=== PATIENT | female | born 1975 | race Caucasian/White ===

== ENCOUNTER 2017-08-14 14:48 | Emergency (ER) | payer OTHER ==
[2017-08-14 15:05] VITALS: BP 118/73
--- NOTE | 2017-08-23 11:55 | ED ---
Lower Extremity - HPI Summary HPI Summary: Patient presents to the ED with CC of numbness R leg from knee down to the foot x 3 weeks. Denies injury. Patient is a smoker, denies travel. Denies pain. Numbness is intermittent. No deformity noted. Ambulating well. Denies previous history of PAD, PVD, DVT or cardiac issues. Denies OCP use. She is otherwise healthy. She states she called her PCP who sent her here for evaluation but notes "i am not nervous and shouldn't be here." Eating and drinking OK. Denies other complaints. She denies color or temperature changes to the area. Pulses + bilaterally. - History of Current Complaint Chief Complaint: EDExtremityLower Stated Complaint: NUMBNESS IN LOWER RT LEG Hx Obtained From: Patient Hx Last Menstrual Period: 05/11 Mechanism Of Injury: Unknown Onset of Pain: Immediate - no pain. Onset/Duration: Weeks Severity Initially: Mild Severity Currently: Mild Pain Intensity: 0 Pain Scale Used: 0-10 Numeric Timing: Intermittent Location: Is Discrete @ - right BTK Associated Signs And Symptoms: Positive: Negative Aggravating Factor(s): Standing, Ambulation Alleviating Factor(s): Rest Able to Bear Weight: Yes - Risk Factors Gout Risk Factors: Age Over 40 DVT Risk Factors: Smoking Septic Arthritis Risk Factor: Negative - Allergies/Home Medications Allergies/Adverse Reactions: Allergies Allergy/AdvReac Type Severity Reaction Status Date / Time No Known Allergies Allergy Verified 09/06/16 15:47 PMH/Surg Hx/FS Hx/Imm Hx Previously Healthy: Yes Endocrine/Hematology History: Denies: Hx Diabetes, Hx Thyroid Disease Cardiovascular History: Denies: Hx Hypertension, Hx Pacemaker/ICD Respiratory History: Denies: Hx Asthma, Hx Chronic Obstructive Pulmonary Disease (COPD) GI History: Denies: Hx Ulcer History: Denies: Hx Renal Disease Sensory History: Denies: Hx Hearing Aid Psychiatric History: Denies: Hx Panic Disorder - Surgical History Surgery Procedure, Year, and Place: 4 C-SECTIONS, FIBROID REMOVAL - Immunization History Date of Tetanus Vaccine: unknown Hx Pertussis Vaccination: No Immunizations Up to Date: Unable to Obtain/Confirm Infectious Disease History: No Infectious Disease History: Reports: Hx Human Immunodeficiency Virus (HIV) Denies: Hx Hepatitis, Hx of Known/Suspected MRSA, Hx Shingles, Hx Tuberculosis, Hx Known/Suspected VRE, History Other Infectious Disease, Traveled Outside the [place] in Last 30 Days - Family History Known Family History: Positive: Cardiac Disease, Respiratory Disease - mother of lung cancer, Father had liver problems - Social History Occupation: Employed Full-time Lives: With Family Alcohol Use: None Hx Substance Use: No Substance Use Type: Reports: None Hx Tobacco Use: Yes Smoking Status (MU): Heavy Every Day Tobacco Smoker Have You Smoked in the Last Year: No Review of Systems Constitutional: Negative Negative: Fever, Chills, Fatigue Eyes: Negative Cardiovascular: Negative Respiratory: Negative Genitourinary: Negative Positive: no symptoms reported, see HPI Musculoskeletal: Negative Positive: Paresthesia - right leg BTK to the foot Psychological: Normal All Other Systems Reviewed And Are Negative: Yes Physical Exam Triage Information Reviewed: Yes Vital Signs On Initial Exam: Initial Vitals Temp Pulse Resp BP Pulse Ox 98.2 F 84 18 118/73 100 08/14/17 15:02 08/14/17 15:02 08/14/17 15:02 08/14/17 15:02 08/14/17 15:02 Vital Signs Reviewed: Yes Appearance: Positive: Well-Appearing, No Pain Distress, Well-Nourished Skin: Positive: Warm, Skin Color Reflects Adequate Perfusion Head/Face: Positive: Normal Head/Face Inspection Eyes: Positive: EOMI, DIOR, Conjunctiva Clear Neck: Positive: Supple, Nontender, No Lymphadenopathy Respiratory/Lung Sounds: Positive: Clear to Auscultation, Breath Sounds Present Cardiovascular: Positive: Normal, RRR, Pulses are Symmetrical in both Upper and Lower Extremities Musculoskeletal: Positive: Normal, Strength/ROM Intact, Other - denies pain on palpation; pinprick to bilateral lower extremities reveals paresthesias with decreased sensation to the right lower extremity without deformity or vascular compromise. Pulses + 2 bilaterally. Good cap refill. Numbness occurring over the dorsum and throughout the calf. No warmth or erythema. Neurological: Positive: Speech Normal Psychiatric: Positive: Normal AVPU Assessment: Alert Diagnostics - Vital Signs Vital Signs Temp Pulse Resp BP Pulse Ox 08/14/17 15:02 98.2 F 84 18 118/73 100 - Laboratory Lab Statement: Any lab studies that have been ordered have been reviewed, and results considered in the medical decision making process. Lower Extremity Course/Dx - Course Course Of Treatment: No warmth or erythema, palpable mass or deformity noted to the right lower extremity. Patient is encouraged to follow up with PCP. Smoker , but denies travel. No pain in the lower extremity. Patient requesting discharge. - Diagnoses Provider Diagnoses: Paresthesia Discharge - Discharge Plan Condition: Stable Disposition: HOME Patient Education Materials: Paresthesia (ED) Referrals: Joel Foley MD [Primary Care Provider] - Additional Instructions: As discussed, please see your PCP I do not feel you need blood work or other imaging as you have been otherwise feeling well Diabetes and elevated sugars can affect numbness/tingling. If you develop cramps or pain in the calf - return to the ED Stretch the leg, apply warmth and ice intermittently to the leg Use ibuprofen 600mg three times daily If this continues, you need to see your PCP for further management
== END 2017-08-14 17:48 | disposition home or self-care (01) ==
LOC: ED 14:48
DX: R20.2 Paresthesia of skin (principal)
CPT/HCPCS: 99282

== ENCOUNTER 2019-05-23 11:06 | Emergency (ER) | payer OTHER ==
[2019-05-23 11:22] VITALS: BP 109/60
--- NOTE | 2019-05-23 11:22 | UC ---
Lower Extremity/Ankle HPI - HPI Summary HPI Summary: 44-year-old woman comes in with a chief complaint of right foot and ankle pain. 2 days ago the patient accidentally tripped and rolled her right ankle. She had pain right away she has pain with weightbearing. Pain is decreased when she elevates it. She has ecchymosis in the area the pain is primarily in the lateral aspect of the ankle and midfoot. - History of Current Complaint Stated Complaint: RIGHT FOOT COMPLAINT Time Seen by Provider: 05/23/19 11:14 Hx Last Menstrual Period: 05/11 - Allergies/Home Medications Allergies/Adverse Reactions: Allergies Allergy/AdvReac Type Severity Reaction Status Date / Time No Known Allergies Allergy Verified 05/23/19 11:23 Home Medications: Home Medications Dolutegravir Sodium [Tivicay] 50 mg PO DAILY WITH MEAL 05/23/19 [History Confirmed 05/23/19] Emtricitabine/Tenofov Alafenam [Descovy 200-25 mg] 1 tab PO DAILY WITH MEAL 02/03 [History Confirmed 05/23/19] Lisinopril 10 mg PO DAILY WITH MEAL 05/23/19 [History Confirmed 05/23/19] PMH/Surg Hx/FS Hx/Imm Hx Previously Healthy: Yes Other History Of: HIV - Surgical History Surgical History: Yes Surgery Procedure, Year, and Place: 4 C-SECTIONS, FIBROID REMOVAL. TUBAL LIGATION 2002 STRONG - Family History Known Family History: Positive: Cardiac Disease, Respiratory Disease - mother of lung cancer, Father had liver problems - Social History Alcohol Use: None Substance Use Type: None Smoking Status (MU): Never Smoked Tobacco Have You Smoked in the Last Year: No Review of Systems All Other Systems Reviewed And Are Negative: Yes Constitutional: Positive: Negative Skin: Positive: Other - SEE HPI Eyes: Positive: Negative ENT: Positive: Negative Respiratory: Positive: Negative Cardiovascular: Positive: Negative Gastrointestinal: Positive: Negative Motor: Positive: Negative Neurovascular: Positive: Negative Musculoskeletal: Positive: Other: - SEE HPI Neurological: Positive: Negative Psychological: Positive: Negative Is Patient Immunocompromised?: No Physical Exam Triage Information Reviewed: Yes Appearance: Well-Appearing, No Pain Distress, Well-Nourished Vital Signs Reviewed: Yes Eye Exam: Normal Eyes: Positive: Conjunctiva Clear Neck: Positive: Supple Respiratory: Positive: No respiratory distress Musculoskeletal: Positive: Other: - There is swelling in the distal right lateral ankle and the right lateral mid foot. Full range of motion full- strength normal capillary refill. No sensation deficit. Neurological: Positive: Alert Skin: Positive: Other - Ecchymosis right lateral ankle and right lateral mid foot. Lower Extremity Course/Dx - Course Course Of Treatment: Staffing Mgr: Bimal Lockhart Daniel, ([id number]) Java Programmer Analyst: IRAIDA ( NUANCE) Report Date: 05/23/2019 11:15:00 Report Status: Final ====== Start of Report Content Patient Name: ROBERTA RUIZ Medical Record#: [id number] Ordering Physician: Gui Argueta MD Acct.#: [id number] : 07/1975 Age: 44 Sex: F Location: [facility] Exam Date: 05/23/19 1115 ADM Status: REG ER Order Information: FOOT RIGHT 3+ VWS Accession Number: [id number] CPT: 53410 HISTORY: PAIN S/P INJURY . COMPARISONS: None relevant available at the time of dictation. VIEWS: 6, Frontal, lateral, and oblique views of the right foot and right ankle FINDINGS: BONE DENSITY: Normal. BONES: There is a small bone fragment along the lateral malleolus. There are posterior and plantar calcaneal enthesophytes. JOINTS: There is no arthropathy. ALIGNMENT : There is no dislocation. SOFT TISSUES: Unremarkable. OTHER FINDINGS: None. IMPRESSION: SMALL BONE FRAGMENT ALONG THE LATERAL MALLEOLUS WHICH MAY REFLECT AVULSION INJURY OF UNCERTAIN ACUITY. <Electronically signed by Bimal Lockhart MD in OV> 09/05/ 19 1219 Dictated By: Bimal Lockhart MD Dictated Date/Time: 05/23/191216 Transcribed Date/Time: 05/23/191216 Copy to: CC:Gloria More MD; Gui Argueta MD Imaging - [facility] Imaging - [facility] [place] [facility] Department [id number] [place] [id number] [place] [address] ph ([phone]) ph [phone]) ph ([phone]) End of Report Content Staffing Mgr: Bimal Lockhart Daniel, ([id number]) Java Programmer Analyst: IRAIDA, ( NUANCE) Report Date: 05/23/2019 11:15:00 Report Status: Final ====== Start of Report Content Patient Name: ROBERTA RUIZ Medical Record#: [id number] Ordering Physician: Gui Argueta MD Acct.#: [id number] : 07/1975 Age: 44 Sex: F Location: [facility] Exam Date: 05/23/195 ADM Status: REG ER Order Information: ANKLE RIGHT 3+VWS Accession Number: [id number] CPT: 36820 HISTORY: PAIN S/P INJURY . COMPARISONS: None relevant available at the time of dictation. VIEWS: 6, Frontal, lateral, and oblique views of the right foot and right ankle FINDINGS: BONE DENSITY: Normal. BONES: There is a small bone fragment along the lateral malleolus. There are posterior and plantar calcaneal enthesophytes. JOINTS: There is no arthropathy. ALIGNMENT : There is no dislocation. SOFT TISSUES: Unremarkable. OTHER FINDINGS: None. IMPRESSION: SMALL BONE FRAGMENT ALONG THE LATERAL MALLEOLUS WHICH MAY REFLECT AVULSION INJURY OF UNCERTAIN ACUITY. <Electronically signed by Bimal Lockhart MD in OV> 121 Dictated By: Bimal Lockhart MD Dictated Date/Time: 05/23/191216 Transcribed Date/Time: 05/23/191216 Copy to: CC:Gloria More MD; Gui Argueta MD Imaging - [facility] Imaging - [facility] Emergency Department [address] [address] ph ([phone] ph ) ph ([phone]) End of Report Content I discussed the x-rays with the patient. There is a small bony fragment off of the distal lateral malleolus. Patient's point tenderness is more in the midfoot laterally today. This most likely indicates the bone fragment is from an older injury. We'll treat as an ankle sprain and a foot sprain. Ice elevation anti-inflammatories Stephan wrap and postop shoe and follow-up with sports medicine or orthopedics as needed. - Differential Dx/Diagnosis Provider Diagnosis: Right ankle sprain, Right foot sprain Discharge ED - Sign-Out/Discharge Documenting (check all that apply): Patient Departure All imaging exams completed and their final reports reviewed: Yes - Discharge Plan Condition: Stable Disposition: HOME Patient Education Materials: Ankle Sprain (ED), Foot Sprain (ED) Referrals: Gloria More MD [Primary Care Provider] - Additional Instructions: FOLLOW UP WITH YOUR DOCTOR IF NOT COMPLETELY IMPROVED. GET RECHECKED SOONER IF YOUR CONDITION WORSENS OR ANY QUESTIONS OR CONCERNS. - Billing Disposition and Condition Condition: STABLE Disposition: Home
== END 2019-05-23 12:37 | disposition home or self-care (01) ==
LOC: UCEAST 11:06
DX: S93.401A Sprain of unspecified ligament of right ankle, initial encounter (principal); S93.601A Unspecified sprain of right foot, initial encounter; X58.XXXA Exposure to other specified factors, initial encounter; Y92.9 Unspecified place or not applicable
CPT/HCPCS: 99213; G0463

== ENCOUNTER 2019-09-11 13:18 | Emergency (ER) | payer OTHER ==
--- NOTE | 2019-09-11 15:33 | ED ---
Head Injury - HPI Summary HPI Summary: This patient is a 44-year-old female with a past medical history of a HIV, TIA and hypertension presenting to the ED after a fall last evening. She states she tripped over her dog on the stairs, fell backwards, hitting her head and her mid back and is now endorsing headache. She endorses this headache at a 6/ 10, constant and into the occipital area. She denies any blood thinners. She denies any confusion, memory loss, nausea, vomiting, neck pain. She denies any visual changes or disturbances. She states she has never had a concussion in the past. Patient endorses mid back pain without radiation. Urinating well. Denies any numbness or tingling to the bilateral lower extremities. - History Of Current Complaint Chief Complaint: EDHeadInjury Stated Complaint: FALL AND HEADACHE PER PT Time Seen by Provider: 09/11/19 13:25 Hx Obtained From: Patient Hx Last Menstrual Period: 05/11 Mechanism Of Injury: Direct Blow Onset/Duration: Started Hours Ago Onset of Pain: Hours Severity Currently: Moderate Severity Initially: Moderate Pain Intensity: 3 Pain Scale Used: 0-10 Numeric Character: Pressure Aggravating Factor(s): Movement Alleviating Factor(s): Rest, Ice Associated Signs And Symptoms: Negative - Risk Factors SDH Risk Factor: Negative - Allergies/Home Medications Allergies/Adverse Reactions: Allergies Allergy/AdvReac Type Severity Reaction Status Date / Time No Known Allergies Allergy Verified 09/11/19 13:22 PMH/Surg Hx/FS Hx/Imm Hx Previously Healthy: Yes Endocrine/Hematology History: Reports: Hx Diabetes - boderline Denies: Hx Thyroid Disease Cardiovascular History: Reports: Hx Hypertension Denies: Hx Pacemaker/ICD Respiratory History: Denies: Hx Asthma, Hx Chronic Obstructive Pulmonary Disease (COPD) GI History: Denies: Hx Ulcer History: Denies: Hx Renal Disease Sensory History: Denies: Hx Hearing Aid Psychiatric History: Denies: Hx Panic Disorder - Surgical History Surgery Procedure, Year, and Place: 4 C-SECTIONS, FIBROID REMOVAL. TUBAL LIGATION 2002 STRONG - Immunization History Date of Tetanus Vaccine: unknown Hx Pertussis Vaccination: No Immunizations Up to Date: Yes Infectious Disease History: No Infectious Disease History: Reports: Hx Human Immunodeficiency Virus (HIV) Denies: Hx Hepatitis, Hx of Known/Suspected MRSA, Hx Shingles, Hx Tuberculosis, Hx Known/Suspected VRE, History Other Infectious Disease, Traveled Outside the [place] in Last 30 Days - Family History Known Family History: Positive: Cardiac Disease, Respiratory Disease - mother of lung cancer, Father had liver problems - Social History Occupation: Employed Full-time Lives: With Family Alcohol Use: Occasionally Hx Substance Use: No Substance Use Type: Reports: None Hx Tobacco Use: No Smoking Status (MU): Never Smoked Tobacco Have You Smoked in the Last Year: No Review of Systems Negative: Fever, Chills, Fatigue, Skin Diaphoresis Negative: Palpitations, Chest Pain Negative: Shortness Of Breath, Cough Genitourinary: Negative Positive: no symptoms reported, see HPI Negative: Arthralgia, Myalgia Negative: Headache, Weakness, Paresthesia, Numbness All Other Systems Reviewed And Are Negative: Yes Physical Exam Triage Information Reviewed: Yes Vital Signs On Initial Exam: Initial Vitals Temp Pulse Resp BP Pulse Ox 97.9 F 83 17 127/90 97 09/11/19 13:19 09/11/19 13:19 09/11/19 13:19 09/11/19 13:19 09/11/19 13:19 Vital Signs Reviewed: Yes Appearance: Positive: Well-Appearing, Well-Nourished Skin: Positive: Warm, Skin Color Reflects Adequate Perfusion Head/Face: Positive: Normal Head/Face Inspection Eyes: Positive: EOMI, Conjunctiva Clear Neck: Positive: Supple Respiratory/Lung Sounds: Positive: Clear to Auscultation, Breath Sounds Present Cardiovascular: Positive: RRR, Pulses are Symmetrical in both Upper and Lower Extremities Musculoskeletal: Positive: Strength/ROM Intact Neurological: Positive: Sensory/Motor Intact, Alert, Oriented to Person Place, Time, Speech Normal Psychiatric: Positive: Affect/Mood Appropriate AVPU Assessment: Alert Procedures - Sedation Patient Received Moderate/Deep Sedation with Procedure: No Diagnostics - Vital Signs Vital Signs Temp Pulse Resp BP Pulse Ox 09/11/19 13:29 80 98 09/11/19 13:27 81 124/82 98 09/11/19 13:19 97.9 F 83 17 127/90 97 - Laboratory Lab Statement: Any lab studies that have been ordered have been reviewed, and results considered in the medical decision making process. Head Injury Course/Dx Course Of Treatment: Patient is evaluated for head injury which occurred approximately 12 hours ago. Patient endorses headache, which is mild, however rated a 6/10. She denies any neck pain. According to [place] CT Head Rules, CT was NOT obtained d/t: GCS score >15 at 2h post injury. No suspected open or depressed skull fx, no sign of basal skull fx, no hemotympanum, raccoon eyes, Battles sign, CSF rocio-/rhinorrhea, no emesis after injury, age <64yo, no amnesia greater than 30 minutes prior to trauma, and mechanism of injury was minimal impact with no MVA or fall greater than 3 ft. Complete neuro exam completed and WNL. Normal head/face inspection with no cephalohematoma. Reflexes intact. EOMI, DIOR, visual acuity intact. No obvious confusion or memory loss per patient and family. MMSE OK. GCS 15. Patient oriented to person, place and date. No obvious deformity or signs of trauma. Finger to nose , heel to toe OK. Speech normal, facial symmetry, normal gait, CN II-III intact. Patient denies LOC. ROM, strength, reflexes in upper and lower extremity intact, sensation intact. Patient discharged with return precautions and post-concussive symptoms explained to patient. Patient agrees to follow up and return if needed. - Diagnoses Differential Diagnosis/HQI/PQRI: Concussion With LOC, Concussion Without LOC, Contusion Provider Diagnoses: Head injury Discharge ED - Sign-Out/Discharge Documenting (check all that apply): Patient Departure - Discharge Plan Condition: Stable Disposition: HOME Patient Education Materials: Concussion (ED) Forms: *Work Release Referrals: Gloria More MD [Primary Care Provider] - Additional Instructions: As discussed, you may have a concussion. If you develop worsening or changing symptoms, please return to the ED Off work x 2 days Tylenol 650mg three times daily - Billing Disposition and Condition Condition: STABLE Disposition: Home - Attestation Statements Provider Attestation: I was available for consult. This patient was seen by the OLIVA. The patient was not presented to, seen by, or examined by me. Spencer Bush MD
[2019-09-11 15:35] VITALS: BP 139/89
== END 2019-09-11 15:34 | disposition home or self-care (01) ==
LOC: ED 13:18
DX: S09.90XA Unspecified injury of head, initial encounter (principal); W01.0XXA Fall on same level from slipping, tripping and stumbling without subsequent striking against object, initial encounter; Y92.009 Unspecified place in unspecified non-institutional (private) residence as the place of occurrence of the external cause; I10 Essential (primary) hypertension; Z21 Asymptomatic human immunodeficiency virus [HIV] infection status; Z86.73 Personal history of transient ischemic attack (TIA), and cerebral infarction without residual deficits; Z98.51 Tubal ligation status
CPT/HCPCS: 99281